=== PATIENT | male | born 1985 | race Caucasian/White ===

== ENCOUNTER 2018-03-03 21:17 | Emergency (ER) | payer BC, OTHER ==
[~2018-03-03] VITALS: Ht 185.4 cm; Wt 111.1 kg
--- OUTSIDE RECORDS SUMMARY | 2018-03-03 21:23 | XMS REPORT ---
Author Author VINH IAN [facility] Address [address] [place] [address] Care Team Providers Care Life Tester [employer] Name Role Phone IAN JUSTICE Unavailable PROBLEMS Type Condition ICD9-CM Code [id number] Code Onset Dates Condition Status SNOMED Code Problem Moderate persistent asthma with acute exacerbation J45.41 Active [id number] ALLERGIES No Information ENCOUNTERS Encounter Location Date Diagnosis [place] [id number] [place] [address] [phone]- [phone] Jan, [place] [id number] [place] [address] 08091- 7871 Dec, Acute non-recurrent pansinusitis J01.40 and Moderate persistent asthma with acute exacerbation J45.41 [place] [id number] [place] [address]36- 1965 Sep, Acute viral conjunctivitis of left eye B30.9 [place] [id number] [place] [address] 21203- 7846 Jun, [place] [address] [place] [address] 33005- 2257 Jun, [place] [id number] [place] [address] 35058- 2310 Dec, [facility] [id number] [place] [address] 23941- 4167 Dec, [place] [id number] [place] [address] 57689- 7901 Dec, [facility] [id number] [place] [address] 42605- 8839 Nov, IMMUNIZATIONS No Known Immunizations SOCIAL HISTORY Never Assessed REASON FOR VISIT Work note PLAN OF CARE VITAL SIGNS MEDICATIONS Unknown Medications RESULTS No Results PROCEDURES No Known procedures INSTRUCTIONS MEDICATIONS ADMINISTERED No Known Medications MEDICAL (GENERAL) HISTORY Type Description Date Medical History Asthma
--- OUTSIDE RECORDS SUMMARY | 2018-03-03 21:23 | XMS REPORT ---
Author Author AGNES VALDEZ [facility] Address [address] [place] [address] Care Team Providers Care Bundle Clerk Name Role Phone KAMINIRoyce AGNES Unavailable PROBLEMS Type Condition ICD9-CM Code YKT76-SE Code Onset Dates Condition Status SNOMED Code Problem Mild asthma with acute exacerbation, unspecified whether persistent J45.901 Active [id number] Problem Moderate persistent asthma with acute exacerbation J45.41 Active [id number] ALLERGIES No Known Allergies ENCOUNTERS Encounter Location Date Diagnosis [facility] [id number] [place] [phone] -[phone] Jan, Sore throat J02.9 ; Acute streptococcal pharyngitis J02.0 and Mild asthma with acute exacerbation, unspecified whether persistent J45.901 [facility] [id number] [place] [address] 47593- 6071 Jan, [facility] [id number] [place] [address] 74342- 8129 Dec, Acute non-recurrent pansinusitis J01.40 and Moderate persistent asthma with acute exacerbation J45.41 [facility] [id number] [place] [address] 27709- 5134 Sep, Acute viral conjunctivitis of left eye B30.9 [facility] [id number] [place] [address] 80831- 7897 Jun, [facility] [id number] [place] [address] 36869- [phone] Jun, [facility] [id number] [place] [address] 45251- 8428 Dec, [facility] [id number] [place] [address] Dec, [facility] [address] [facility] [id number] [place] [address] Dec, [facility] [address] [facility] [id number] [place] [address] Nov, IMMUNIZATIONS No Known Immunizations SOCIAL HISTORY Never Assessed REASON FOR VISIT Sore throat PLAN OF CARE Activity Details Follow Up if not improving with PCP or reg follow up Reason: VITAL SIGNS Height 6'1" in 2018-01-13 Weight 253 lbs 2018-01-13 Temperature 98.1 degrees Fahrenheit 2018-01-13 Heart Rate 72 bpm 2018-01-13 Respiratory Rate 20 2018-01-13 BMI 33.38 kg/m2 2018-01-13 Blood pressure systolic 120 mmHg 2018-01-13 Blood pressure diastolic 76 mmHg 2018-01-13 MEDICATIONS Medication Instructions Dosage Frequency Start Date End Date Duration Status Albuterol Sulfate by Inhalation route Nov, Active Ventolin HFA 108 (90 Base) mcg/act inhale 1 - 2 puffs by inhalation route every 4 hours as needed Use prn shortness of breath Dec, Active PredniSONE 20 mg Orally Once a day 1 tablet 24h Jan, 5 days Active Amoxicillin 875 MG Orally every 12 hrs 1 tablet 12h Jan, Jan, 10 day(s) Active Advair Diskus 250-50 mcg/dose 1 puffs by Inhalation route 2 times per day Dec, Active RESULTS Name Result Date Reference Range STREP A (IN HOUSE) 2018-01-13 STREP A + Control + Lot # [id number] Exp date 08/08/2018 PROCEDURES Procedure Date Ordered Result Body Site STREP A ASSAY W/OPTIC Jan 13, 2018 INSTRUCTIONS MEDICATIONS ADMINISTERED No Known Medications MEDICAL (GENERAL) HISTORY Type Description Date Medical History Asthma Surgical History No know Surgical history
--- OUTSIDE RECORDS SUMMARY | 2018-03-03 21:24 | XMS REPORT | Continuity of Care Document ---
Author Author [facility] Organization [facility] Address Unknown Phone Unavailable Care Team Providers Care Flavoring Machine Operator Name Role Phone NO, LOCAL PHYSICIAN PP Unavailable Insurance Providers Payer Name Policy Number Subscriber Name Relationship [facility] [id number] Eldon Avila 01 Self / Same As Patient Advance Directives Directive Response Recorded Date Advance Directives N 09/10/12 1:47am Problems No Known Problems or Medical conditions. Social History History Response Recorded Date/Time Alcohol Use Occasionally Uses 09/10/12 1: 47am Recreational Drug Use N 09/10/12 1:47am Sexually Transmitted Disease N 09/10/12 1 :47am Allergies, Adverse Reactions, Alerts Allergen Type Severity Reaction Last Updated No Known Drug Allergies 09/10/12 Medications Medication Dose Units Route Sig Qty Days No Active Prescriptions or Reported Medications Response Recorded Date/Time Status not known Unknown Results No Known Relevant Diagnostic Tests, Laboratory Data and/or Discharge Summary. Encounters Encounter Location Date/Time Departed Emergency Room [facility] 05/21 1:45am
--- OUTSIDE RECORDS SUMMARY | 2018-03-03 21:24 | XMS REPORT ---
Author Author GIRISH ALVARADO Organization [facility] Address [address] [place] [address] Care Team Providers Care Glass Tinter Name Role Phone GIRISH ALVARADO Unavailable PROBLEMS Type Condition ICD9-CM Code MLQ11-HI Code Onset Dates Condition Status SNOMED Code Problem Moderate persistent asthma with acute exacerbation J45.41 Active [id number] ALLERGIES No Known Allergies ENCOUNTERS Encounter Location Date Diagnosis [place] [id number] [place] [address] 88127- 3555 Jan, [place] [id number] [place] [address] 26627- 8625 Dec, Acute non-recurrent pansinusitis J01.40 and Moderate persistent asthma with acute exacerbation J45.41 [facility] [id number] [place] [address] 27846- 5221 Sep, Acute viral conjunctivitis of left eye B30.9 [facility] [address] [place] [address] 51266- [phone] Jun, [facility] [address] [place] [address] 92432- 2260 Jun, [facility] [id number] [place] [address] 84908- 5058 Dec, [facility] [id number] [place] [address] 09601- 9326 Dec, [facility] [id number] [place] [address] 33205- 0604 Dec, [facility] [id number] [place] [address] 08249- 0551 Nov, IMMUNIZATIONS No Known Immunizations SOCIAL HISTORY Never Assessed REASON FOR VISIT Eye discharge. Left eye discharge since last night. JACQUES Mcdermott PLAN OF CARE Activity Details Follow Up prn Reason: VITAL SIGNS Weight 245 lbs 2016-09-25 Temperature 97.8 degrees Fahrenheit 2016-09-25 Heart Rate 74 bpm 2016-09-25 Respiratory Rate 16 2016-09-25 Blood pressure systolic 130 mmHg 2016-09-25 Blood pressure diastolic 80 mmHg 2016-09-25 MEDICATIONS Medication Instructions Dosage Frequency Start Date End Date Duration Status Advair Diskus 250-50 mcg/dose 1 puffs by Inhalation route 2 times per day Dec, Active Albuterol Sulfate by Inhalation route Nov, Active Advair Diskus by Inhalation route Nov, Active Erythromycin 5 MG/GM Ophthalmic Four times a day 1 application 6h Sep, Sep, 07 days Active Ventolin HFA 90 mcg/actuation inhale 1 - 2 puffs by inhalation route every 4 hours as needed Use prn shortness of breath Dec, Active RESULTS No Results PROCEDURES No Known procedures INSTRUCTIONS MEDICATIONS ADMINISTERED No Known Medications MEDICAL (GENERAL) HISTORY Type Description Date Medical History Asthma
--- OUTSIDE RECORDS SUMMARY | 2018-03-03 21:24 | XMS REPORT ---
Author Author VINH IAN [facility] Address [address] [place] [address] Care Team Providers Care Metal Refiner Name Role Phone IAN JUSTICE Unavailable PROBLEMS Type Condition ICD9-CM Code YQZ10-KF Code Onset Dates Condition Status SNOMED Code Problem Moderate persistent asthma with acute exacerbation J45.41 Active [id number] ALLERGIES No Known Allergies ENCOUNTERS Encounter Location Date Diagnosis [place] [address] [address]- [address] Jan, [place] [address] 80521- 4448 Dec, Acute non-recurrent pansinusitis J01.40 and Moderate persistent asthma with acute exacerbation J45.41 [place] [id number] [place] [address] 85608- 3056 Sep, Acute viral conjunctivitis of left eye B30.9 [place] [id number] [place] [address] 07876- 4537 Jun, [place] [id number] [place] [address] 67480- [phone] Jun, [place] [id number] [place] [address] 30473- 8320 Dec, [place] [id number] [place] [address] 11938- [phone] Dec, [place] [address] 77972- 9660 Dec, [place] [id number] [place] [address] 94556- [phone] Nov, IMMUNIZATIONS No Known Immunizations SOCIAL HISTORY Never Assessed REASON FOR VISIT cold symptoms, chest congestion, productive cough with dark yellow plems , feelling tired and sleepy x 1 week -- vi johnston PLAN OF CARE Activity Details Follow Up prn Reason: VITAL SIGNS Height 6'1" in 2017-01-08 Weight 244 lbs 2017-01-08 Temperature 97.6 degrees Fahrenheit 2017-01-08 Heart Rate 80 bpm 2017-01-08 Respiratory Rate 22 2017-01-08 BMI 32.19 kg/m2 2017-01-08 Blood pressure systolic 140 mmHg 2017-01-08 Blood pressure diastolic 78 mmHg 2017-01-08 MEDICATIONS Medication Instructions Dosage Frequency Start Date End Date Duration Status PredniSONE 50 mg Orally daily One 24h Dec, Jan, 5 days Active Albuterol Sulfate by Inhalation route Nov, Active Advair Diskus 250-50 mcg/dose 1 puffs by Inhalation route 2 times per day Dec, Active Augmentin 875-125 MG Orally every 12 hrs 1 tablet 12h Dec,Jan 10 days Active Ventolin HFA 108 (90 Base) mcg/act inhale 1 - 2 puffs by inhalation route every 4 hours as needed Use prn shortness of breath Dec, Active RESULTS No Results PROCEDURES No Known procedures INSTRUCTIONS MEDICATIONS ADMINISTERED No Known Medications MEDICAL (GENERAL) HISTORY Type Description Date Medical History Asthma
--- OUTSIDE RECORDS SUMMARY | 2018-03-03 21:24 | XMS REPORT | Continuity of Care Document ---
Author Author [facility] Organization [facility] Address Unknown Phone Unavailable Allergies There is no data. Medications There is no data. Problems There is no data. Procedures There is no data. Results There is no data. Encounters ACCT No. Visit Date/Time Discharge Status Pt. Type Provider Facility Loc./Unit Complaint [id number] 09/10/2012 01:45:00 09/10/2012 03:31:00 [facility] Emergency
[2018-03-03] MEDS ORDERED: BUDE10.2 (21:27)
--- NOTE | 2018-03-03 21:29 | ED Back Pain ---
General Chief Complaint: Back Problems Stated Complaint: LOWER ABD PAIN Source of Information: Patient Exam Limitations: No Limitations History of Present Illness Date Seen by Provider: Mar 03, 2018 Time Seen by Provider: 21:28 Initial Comments To ER with reports of lower abdominal pain and left-sided abdominal pain. This is been ongoing for 2-3 days associated with nausea without vomiting and diarrhea. The diarrhea has subsided but he developed some bilateral flank and especially left flank pain about 15 minutes ago. He does report a productive cough, sore throat, rhinorrhea and general body aches as well. Location: Lumbar Spine Timing/Duration: Other Severity: Moderate Pain/Injury Location: Back Associated Symptoms: lower back pain Allergies and Home Medications Allergies Coded Allergies: No Known Drug Allergies (Unverified , 09/10/12) Patient Home Medication List Home Medication List Reviewed: Yes Review of Systems Constitutional: see HPI, chills, malaise, weakness EENTM: see HPI, throat pain Respiratory: see HPI, cough Cardiovascular: no symptoms reported Gastrointestinal: abdominal pain, diarrhea, nausea; No vomiting Genitourinary: no symptoms reported Musculoskeletal: no symptoms reported Skin: no symptoms reported Psychiatric/Neurological: No Symptoms Reported Past Jvjpvsa-Stntyo-Jcnftv Hx Patient Social History Recent Foreign Travel: No Contact w/Someone Who Travel: No Immunizations Up To Date Tetanus Booster (TDap): Less than 5yrs Past Medical History Reproductive Disorders: No Sexually Transmitted Disease: No Family Medical History No Pertinent Family Hx Physical Exam Vital Signs Vital Signs - First Documented 03/03/18 21:20 Temp 97.2 Pulse 80 Resp 18 B/P (MAP) 156/109 (125) Pulse Ox 98 O2 Delivery Room Air Capillary Refill : Height, Weight, BMI Height: '" Weight: lbs. oz. kg; BMI Method:Stated General Appearance: No Apparent Distress, WD/WN HEENT: PERRL/EOMI, TMs Normal Neck: Full Range of Motion, Normal Inspection Cardiovascular: Regular Rate, Rhythm, Normal Peripheral Pulses Respiratory: Normal Breath Sounds, No Accessory Muscle Use, No Respiratory Distress; No Wheezing Gastrointestinal: Normal Bowel Sounds, Soft, Tenderness Extremity: Normal Capillary Refill, Normal Inspection Neurologic/Psychiatric: Alert (left-sided), Oriented x3 Skin: Normal Color, Warm/Dry Progress/Results/Core Measures Results/Orders Lab Results Laboratory Tests Test 03/03/18 21:35 03/03/18 21:40 Range/Units Urine Color YELLOW Urine Clarity CLEAR Urine pH 5 5-9 Urine Specific Beattie 1.025 H 1.016-1.022 Urine Protein NEGATIVE NEGATIVE Urine Glucose (UA) NEGATIVE NEGATIVE Urine Ketones NEGATIVE NEGATIVE Urine Nitrite NEGATIVE NEGATIVE Urine Bilirubin NEGATIVE NEGATIVE Urine Urobilinogen 1 NORMAL MG/DL Urine Leukocyte Esterase NEGATIVE NEGATIVE Urine RBC (Auto) NEGATIVE NEGATIVE Urine RBC NONE /HPF Urine WBC NONE /HPF Urine Squamous Epithelial Cells RARE /HPF Urine Crystals NONE /LPF Urine Bacteria NONE /HPF Urine Casts NONE /LPF Urine Mucus NEGATIVE /LPF Urine Culture Indicated NO White Blood Count 5.4 4.3-11.0 10^3/uL Red Blood Count 4.78 4.35-5.85 10^6/uL Hemoglobin 14.8 13.3-17.7 G/DL Hematocrit 41 40-54 % Mean Corpuscular Volume 86 80-99 FL Mean Corpuscular Hemoglobin 31 25-34 PG Mean Corpuscular Hemoglobin Concent 36 32-36 G/DL Red Cell Distribution Width 12.4 10.0-14.5 % Platelet Count 219 130-400 10^3/uL Mean Platelet Volume 9.2 7.4-10.4 FL Neutrophils (%) (Auto) 44 42-75 % Lymphocytes (%) (Auto) 39 12-44 % Monocytes (%) (Auto) 12 0-12 % Eosinophils (%) (Auto) 5 0-10 % Basophils (%) (Auto) 0 0-10 % Neutrophils # (Auto) 2.4 1.8-7.8 X 10^3 Lymphocytes # (Auto) 2.1 1.0-4.0 X 10^3 Monocytes # (Auto) 0.7 0.0-1.0 X 10^3 Eosinophils # (Auto) 0.3 0.0-0.3 10^3/uL Basophils # (Auto) 0.0 0.0-0.1 10^3/uL Sodium Level 140 135-145 MMOL/L Potassium Level 3.7 3.6-5.0 MMOL/L Chloride Level 107 98-107 MMOL/L Carbon Dioxide Level 22 21-32 MMOL/L Anion Gap 11 5-14 MMOL/L Blood Urea Nitrogen 11 7-18 MG/DL Creatinine 0.96 0.60-1.30 MG/DL Estimat Glomerular Filtration Rate > 60 BUN/Creatinine Ratio 11 Glucose Level 82 70-105 MG/DL Calcium Level 8.9 8.5-10.1 MG/DL Corrected Calcium 8.7 8.5-10.1 MG/DL Total Bilirubin 0.7 0.1-1.0 MG/DL Aspartate Amino Transf (AST/SGOT) 35 H 5-34 U/L Alanine Aminotransferase (ALT/SGPT) 41 0-55 U/L Alkaline Phosphatase 69 40-136 U/L Total Creatine Kinase 273 H 30-200 U/L Myoglobin 50.1 10.0-92.0 NG/ML Total Protein 6.9 6.4-8.2 GM/DL Albumin 4.3 3.2-4.5 GM/DL Monoscreen NEGATIVE NEGATIVE Group A Streptococcus Screen NEGATIVE NEGATIVE Micro Results Microbiology 03/03/18 Influenza Types A,B Antigen (TERESITA) - Final, Complete My Orders Orders - JOSR VALDEZ [employer] MET[employer] INSTALLER Cbc With Automated Diff (03/03/18 21:26) Comprehensive Metabolic Panel (03/03/18 21:26) Monotest (03/03/18 21:26) Rapid Strep A Screen (03/03/18 21:26) Influenza A And B Antigens (03/03/18 21:26) Chest Pa/Lat (2 View) (03/03/18 21:26) Myoglobin Serum (03/03/18 21:26) Creatine Kinase (03/03/18 21:26) Iv Heplock-Insert (Order) (03/03/18 21:26) Ns Iv 1000 Ml (Sodium Chloride 0.9%) (03/03/18 21:30) Ketorolac Injection (Toradol Injection) (03/03/18 21:30) Ondansetron Injection (Zofran Injectio (03/03/18 21:30) Ua Culture If Indicated (03/03/18 21:29) Ct Abdomen/Pelvis W (03/03/18 21:57) Iohexol Injection (Omnipaque 350 Mg/Ml 1 (03/03/18 22:15) Contrast Received (Contrast Received) (03/03/18 22:15) Ns (Ivpb) (Sodium Chloride 0.9% Ivpb Bag (03/03/18 22:15) Medications Given in ED Current Medications Medications Dose Ordered Sig/Dru Route Start Time Stop Time Status Last Admin Dose Admin Iohexol 100 ml ONCE ONCE IV 03/03/18 22:15 03/03/18 22:16 DC 03/03/18 22:18 100 ML Ketorolac Tromethamine 15 mg ONCE ONCE IVP 03/03/18 21:30 03/03/18 21:31 DC 03/03/18 21:39 15 MG Ondansetron HCl 4 mg ONCE ONCE IVP 03/03/18 21:30 03/03/18 21:31 DC 03/03/18 21:38 4 MG Sodium Chloride 100 ml ONCE ONCE IV 03/03/18 22:15 03/03/18 22:16 DC 03/03/18 22:18 80 ML Vital Signs/I&O 03/03/18 03/03/18 21:20 21:39 Temp 97.2 97.2 Pulse 80 Resp 18 B/P (MAP) 156/109 (125) Pulse Ox 98 O2 Delivery Room Air Departure Impression Primary Impression: Viral syndrome Additional Impressions: Flank pain Myalgia Disposition: 01 HOME, SELF-CARE Condition: Stable Departure-Patient Inst. Decision time for Depature: 22:32 Referrals: JARET MAYBERRY MD (PCP/Family) Primary Care Physician Patient Instructions: VIRAL SYNDROME Add. Discharge Instructions: 1. Drink plenty of fluids 2. Tylenol and Motrin for pain 3. Expect symptoms to last 5-7 days All discharge instructions reviewed with patient and/or family. Voiced understanding. JOSR VALDEZ GAS METER INSTALLER Mar 03, 2018 21:29
[2018-03-03] MEDS ORDERED: KETOROLAC 30 MG/ML VIAL IVP ONE (21:30)
[2018-03-03] MEDS ORDERED: NS IV 1000 ML 1,000 ML IV SCH (21:30)
[2018-03-03] MEDS ORDERED: ONDANSETRON 4 MG/2 ML (SDV) Z0FRAN IVP ONE (21:30)
[2018-03-03 21:50] LABS: BILIRUBIN,URINE NEGATIVE (NEGATIVE); CLARITY,URINE CLEAR; COLOR,URINE YELLOW; GLUCOSE, URINE (UA) NEGATIVE (NEGATIVE); KETONES,URINE NEGATIVE (NEGATIVE); LEUKOCYTE ESTERASE ,URINE NEGATIVE (NEGATIVE); NITRITE,URINE NEGATIVE (NEGATIVE); PH,URINE 5 (5-9); PROTEIN,URINE NEGATIVE (NEGATIVE); UROBILINOGEN,URINE 1 MG/DL (NORMAL)
[2018-03-03 21:51] LABS: BASOPHILS % (AUTO) 0 % (0-10); EOSINOPHILS # (AUTO) 0.3 10^3/uL (0.0-0.3); EOSINOPHILS % (AUTO) 5 % (0-10); HEMATOCRIT 41 % (40-54); HEMOGLOBIN 14.8 G/DL (13.3-17.7); LYMPHOCYTES # (AUTO) 2.1 X 10^3 (1.0-4.0); LYMPHOCYTES % (AUTO) 39 % (12-44); MEAN CORPUSCULAR HEMOGLOBIN 31 PG (25-34); MEAN CORPUSCULAR HGB CONC 36 G/DL (32-36); MEAN CORPUSCULAR VOLUME 86 FL (80-99); MEAN PLATELET VOLUME 9.2 FL (7.4-10.4); MONOCYTES # (AUTO) 0.7 X 10^3 (0.0-1.0); MONOCYTES % (AUTO) 12 % (0-12); NEUTROPHILS # (AUTO) 2.4 X 10^3 (1.8-7.8); NEUTROPHILS % (AUTO) 44 % (42-75); PLATELET COUNT 219 10^3/uL (130-400); RED BLOOD COUNT 4.78 10^6/uL (4.35-5.85); RED CELL DISTRIBUTION WIDTH 12.4 % (10.0-14.5); WHITE BLOOD COUNT 5.4 10^3/uL (4.3-11.0)
[2018-03-03 21:56] LABS: SQUAMOUS EPITHELIAL CELL,UR RARE /HPF
[2018-03-03 22:09] LABS: ALANINE AMINOTRANSFERASE 41 U/L (0-55); ALBUMIN 4.3 GM/DL (3.2-4.5); ALKALINE PHOSPHATASE 69 U/L (40-136); BILIRUBIN,TOTAL 0.7 MG/DL (0.1-1.0); BUN/CREATININE RATIO 11; CALCIUM 8.9 MG/DL (8.5-10.1); CARBON DIOXIDE 22 MMOL/L (21-32); CHLORIDE 107 MMOL/L (98-107); CREATINE KINASE 273 U/L (30-200); CREATININE SERUM 0.96 MG/DL (0.60-1.30); GFR ESTIMATED > 60; GLUCOSE 82 MG/DL (70-105); POTASSIUM 3.7 MMOL/L (3.6-5.0); SODIUM 140 MMOL/L (135-145); TOTAL PROTEIN 6.9 GM/DL (6.4-8.2)
[2018-03-03 22:15] LABS: MYOGLOBIN SERUM 50.1 NG/ML (10.0-92.0)
[2018-03-03] MEDS ORDERED: NS 100 ML (IVPB) BAG IV ONE (22:15)
[2018-03-03] MEDS ORDERED: RECEIVED CONTRAST (Hold Metformin) IV SCH (22:15)
[2018-03-03] MEDS ORDERED: IOHEXOL 350 MG/ML 100 ML (OMNIPAQUE 350) VIAL IV ONE (22:15)
--- NOTE | 2018-03-03 22:43 | Diagnostic Imaging Report ---
INDICATION: Cough and congestion COMPARISON: None available TECHNIQUE: Frontal and lateral radiographs of the chest dated 03/03/2018 FINDINGS: Cardiac silhouette and pulmonary vasculature are within normal limits. The lungs are clear. No pleural effusion. No pneumothorax. No acute osseous abnormality. IMPRESSION: No acute cardiopulmonary abnormality. Dictated by: Dictated on workstation # [id number]
[2018-03-03 23:14] VITALS: BP 150/80
--- NOTE | 2018-03-04 06:38 | Diagnostic Imaging Report ---
PROCEDURE: CT abdomen and pelvis with contrast. TECHNIQUE: Multiple contiguous axial images were obtained through the abdomen and pelvis after administration of intravenous contrast. INDICATION: Abdominal pain. FINDINGS: The heart size is normal. The lung bases are clear. The liver is normal in size without focal lesions. There is no biliary dilatation. Gallbladder is unremarkable. Spleen is normal. The pancreas and adrenal glands are unremarkable. Kidneys normal. The aorta is nonaneurysmal. Bowel gas pattern is nonspecific. There is no free air. There is no ascites. No focal inflammatory change. Bladder is normal. There is no pelvic mass, adenopathy or free fluid. The osseous structures are unremarkable. IMPRESSION: Unremarkable CT abdomen and pelvis. Dictated by: Dictated on workstation # [id number]
== END 2018-03-03 23:14 | disposition home or self-care (01) ==
LOC: EDUNIT# 21:17 → ER 21:19
DX: B34.9 Viral infection, unspecified (principal); R10.32 Left lower quadrant pain; M79.10 Myalgia, unspecified site
CPT/HCPCS: 36415; 71046; 74177; 80053; 81000; 82550; 83874; 85025; 86308; 87430; 87804

== ENCOUNTER → 2019-11-09 | Outpatient (CLI) | payer OTHER ==
[~2019-11-09] MED LIST: BUDE10.2
--- NOTE | 2019-11-09 15:27 | Diagnostic Imaging Report ---
PROCEDURE: CT abdomen and pelvis without contrast. TECHNIQUE: Multiple contiguous axial images were obtained through the abdomen and pelvis without the use of intravenous contrast. Auto Exposure Controls were utilized during the CT exam to meet ALARA standards for radiation dose reduction. INDICATION: Left upper quadrant pain/mass, possible hernia. Comparison made with prior examination from 03/03/2018. FINDINGS: Heart size is normal. The lung bases are clear. The liver is normal in size and without focal lesions. Gallbladder is contracted. There is no biliary ductal dilatation. Spleen is normal. Pancreas and adrenal glands are unremarkable. Kidneys are normal in appearance. Aorta is nonaneurysmal. Bowel gas pattern is nonspecific. There is no free air. There is no ascites. There are no focal inflammatory changes. Bladder is normal. There is no pelvic mass or adenopathy. The osseous structures are unremarkable. IMPRESSION: 1. Unremarkable noncontrast CT abdomen and pelvis. Specifically, there is no evidence of hernia. 2. Incidental note is made of a spiral artifact. Dictated by: Dictated on workstation # [id number]
== END ==
LOC: RAD 14:45
PROVIDERS: ATTEND Family Medicine
DX: R19.02 Left upper quadrant abdominal swelling, mass and lump (principal)
CPT/HCPCS: 74176

== ENCOUNTER 2020-10-27 11:13 | Emergency (ER) | payer OTHER ==
[~2020-10-27] VITALS: Ht 185.4 cm; Wt 113.3 kg
[2020-10-27 11:18] VITALS: BP 131/87
--- NOTE | 2020-10-27 11:31 | ED Upper Extremity ---
General Chief Complaint: Laceration Stated Complaint: L THUMB LAC Source: patient Exam Limitations: no limitations (STACY AGOSTO) History of Present Illness Date Seen by Provider: Oct 27, 2020 Time Seen by Provider: 11:15 Initial Comments Pt presents to ED via POV with complaint of L thumb pain/laceration. He states that at about 1050 this morning he was drilling sheet metal when the drill slipped and cut the lateral-dorsal aspect of his L thumb. He states that he bled a significant amount initially but has stopped since arrival. Rates the pain 6/10 at rest, denies radiation/numbness/tingling. Doesnt remember his last tetanus vaccination. Has not taken anything for pain. He has cleaned it out with water. Location Injury Occurred: Work Onset: just prior to arrival Severity: mild Pain/Injury Location: left thumb Method of Injury: other (slipped drill) Modifying Factors: Worse With Movement; Improves With Rest (STACY AGOSTO) Allergies and Home Medications Allergies Coded Allergies: No Known Drug Allergies (Unverified , 09/10/12) Home Medications Cephalexin 500 Mg Tablet, 500 MG PO TID Prescribed by: ADEEL CANALES on 10/27/20 1149 Patient Home Medication List Home Medication List Reviewed: Yes (STACY AGOSTO) Review of Systems Constitutional: No chills, No fever EENTM: No hearing loss, No vision loss Respiratory: No cough, No short of breath Cardiovascular: No chest pain, No edema, No palpitations Gastrointestinal: No abdominal pain, No constipation, No diarrhea, No nausea, No vomiting Genitourinary: No dysuria, No frequency, No hematuria Musculoskeletal: No back pain, No joint pain Skin: No change in color, No change in hair/nails; other (laceration to L dorsal-lateral thumb) Psychiatric/Neurological: No Symptoms Reported (STACY AGOSTO) All Other Systems Reviewed Negative Unless Noted: Yes (STACY AGOSTO) Past Pyyuwzm-Tfkqql-Ncwjbl Hx Patient Social History Tobacco Use?: Yes Tobacco type used: Cigarettes Smoking Status: Light Tobacco Smoker Smokeless Tobacco Frequency: Current Someday User Substance use?: No Alcohol Use?: Yes Alcohol Frequency: Once in a while (STACY AGOSTO) Immunizations Up To Date Tetanus Booster (TDap): Less than 5yrs (STACY AGOSTO [employer] STUDENT) Seasonal Allergies Seasonal Allergies: No (STACY AGOSTO [employer] STUDENT) Past Medical History Surgeries: No Respiratory: Yes Asthma Currently Using CPAP: No Currently Using BIPAP: No Cardiac: No Neurological: No Reproductive Disorders: No Sexually Transmitted Disease: No Genitourinary: No Gastrointestinal: No Musculoskeletal: No Endocrine: No HEENT: No Cancer: No Psychosocial: No Integumentary: No Blood Disorders: No (SURENDRASTACY JONES STUDENT) Family Medical History No Pertinent Family Hx (STACY AGOSTO STUDENT) Physical Exam Vital Signs Vital Signs - First Documented 10/27/20 11:18 Temp 36.6 Pulse 66 Resp 18 B/P (MAP) 131/87 (102) Pulse Ox 98 O2 Delivery Room Air (ADEEL CANALES) Vital Signs Capillary Refill : (STACY AGOSTO STUDENT) Height, Weight, BMI Height: 6'1" Weight: 245lbs. oz. 111.541588vd; 29.68 BMI Method:Stated General Appearance: WD/WN, no apparent distress HEENT: PERRL/EOMI, normal ENT inspection, pharynx normal Neck: non-tender, full range of motion, supple, normal inspection Cardiovascular: normal peripheral pulses, regular rate, rhythm, no murmur Respiratory: chest non-tender, lungs clear, normal breath sounds, no respiratory distress, no accessory muscle use Gastrointestinal: normal bowel sounds, non tender, soft Back: normal inspection, no CVA tenderness, no vertebral tenderness Shoulder: normal inspection, non-tender, no evidence of injury, normal ROM Elbow/Forearm: normal inspection, non-tender, no evidence of injury, normal ROM Wrist: Yes normal inspection, Yes non-tender, Yes no evidence of injury, Yes normal ROM Hand: normal ROM, Left (L thumb), laceration (3cm linear superficial laceration to dorsal-lateral aspect of L thumb, no nail involvement, no loss of sensation, motor function intact), soft tissue tenderness Neurologic/Tendon: normal sensation, normal motor functions, normal tendon functions, responds to pain, no evidence tendon injury Neurologic/Psychiatric: no motor/sensory deficits, alert, normal mood/affect, oriented x 3 Skin: normal color, warm/dry Lymphatic: no adenopathy (SURENDRASTACY [employer] STUDENT) Procedures/Interventions Wound Location: Upper Extremities Other Wound Location Left thumb Wound Length (cm): 3 Wound's Depth, Shape: superficial, linear Wound Explored: clean Irrigated w/ Saline (ccs): 150 Betadine Prep?: Yes (Chlorhexidine) Other Closure Supply: Wound Adhesive Progress Wound was thoroughly cleaned with physical debridement, chlorhexidine soap and sterile saline then flushed. The wound was then allowed to air dry and reapproximated and sealed with cyanoacrylate. (ADEEL CANALES) Progress/Results/Core Measures Results/Orders My Orders Orders - ADEEL CANALES Dipht,Pertuss(Acell),Tet Adult (Boostrix (10/27/20 11:45) (ADEEL CANALES) Medications Given in ED Current Medications Medications Dose Ordered Sig/Dru Route Start Time Stop Time Status Last Admin Dose Admin Diphtheria/ Tetanus/Acell Pertussis 0.5 ml ONCE ONCE IM 10/27/20 11:45 10/27/20 11:46 DC 10/27/20 12:19 0.5 ML (ADEEL CANALES) Vital Signs/I&O 10/27/20 11:18 Temp 36.6 Pulse 66 Resp 18 B/P (MAP) 131/87 (102) Pulse Ox 98 O2 Delivery Room Air (ADEEL CANAELS) Progress Progress Note : Time: 11:46 Progress Note Tetanus vaccine was ordered. Wound will be cleaned thoroughly dried and glued. Put him on some Keflex for 5 days I attest that I saw this patient alongside the medical student and agree with his documented history, physical exam and review of systems except as otherwise noted. (ADEEL CANALES) Departure Impression Primary Impression: Thumb laceration Qualified Codes: S61.012A - Laceration without foreign body of left thumb without damage to nail, initial encounter Disposition: HOME, SELF-CARE Condition: Stable Departure-Patient Inst. Decision time for Depature: 11:48 (ADEEL CANALES) Referrals: JARET MAYBERRY MD (PCP/Family) Primary Care Physician Patient Instructions: Laceration Repair With Glue (DC), Tetanus Toxoid (Adsorbed) Add. Discharge Instructions: You presented to the ER because of a workplace related sheet-metal laceration to your left thumb laterally dorsally and the wound was thoroughly cleaned and glued using cyanoacrylate. Your tetanus vaccine was given today to keep you up-to-date. Keep the wound clean with regular soap and water. The glue will flake off on its own over time. Keflex 1 capsule 3 times a day with food for the next 5 days to prevent inf ection. Return to your doctor or the ER promptly if you start to notice redness going up your hand, extreme swelling or discharge. Compression with a gauze dressing or Coban can help reduce pain and swelling. If you notice swelling you may also use ice and elevate the thumb above the level of your heart. Tylenol and ibuprofen as necessary for pain. All discharge instructions reviewed with patient and/or family. Voiced understanding. Scripts Cephalexin (Cephalexin) 500 Mg Tablet 500 MG PO TID for 5 Days, #15 TAB 0 Refills Prov: ADEEL CANALES 10/27/20 Work/School Note: Work Release Form Date Seen in the Emergency Department: Oct 27, 2020 Return to Work: Oct 28, 2020 Restrictions: No Restrictions STACY AGOSTO MED STUDENT Oct 27, 2020 11:31 ADEEL CANALES Oct 27, 2020 11:49
[2020-10-27] MEDS ORDERED: TETANUS,DIPTH,PERTUSS P/F (BOOSTRIX) 0.5 ML VIAL IM ONE (11:45)
[2020-10-27] MEDS ORDERED: CEPH500T PO (11:49)
--- OUTSIDE RECORDS SUMMARY | 2020-10-27 13:43 | XMS REPORT | Clinical Summary ---
Author Author [facility] Organization [facility] Address Unknown Phone Unavailable Care Team Providers Care Pharmaceutical Scientist Name Role Phone PCP Unavailable Source Comments [facility] ([facility] Delivery) documents do [facility] appear [facility] Allergies Not on File Medications Please verify current medications with patient. Not on file Active Problems Not on file Social History Date Tobacco Use Types Packs/Day Years Used Never Assessed Sex Assigned at Date Recorded Not on file Last Filed Vital Signs Not on file Plan of Treatment Health Maintenance Due Date Last Done Comments COVID-19 Vaccine (1) 1995 Influenza Vaccine (#1) 2020 HPV Vaccine Aged Out No longer eligible based on patient's age to complete this topic Pneumococcal Vaccine: Aged Out No longer eligib le based on patient's age to Pediatrics (0 to 5 Years) complete this topic and At-Risk Patients (6 to 64 Years) Results Not on filefrom Last 3 Months
== END 2020-10-27 12:25 | disposition home or self-care (01) ==
LOC: EDUNIT# 11:13 → ER 11:14
DX: S61.012A Laceration without foreign body of left thumb without damage to nail, initial encounter (principal); J45.909 Unspecified asthma, uncomplicated; F17.210 Nicotine dependence, cigarettes, uncomplicated; Z23 Encounter for immunization; W31.1XXA Contact with metalworking machines, initial encounter
CPT/HCPCS: 90715; 99284